=== PATIENT | female | born 1975 | race Caucasian/White ===

== ENCOUNTER 2018-06-26 14:46 | Emergency (ER) | payer BC ==
--- NOTE | 2018-06-26 16:18 | UC ---
Respiratory Complaint HPI - HPI Summary HPI Summary: 42 y/o female presents to the urgent care c/o sinus congestion w/ yellowish nasal discharge, dry cough and sinus pain for the past week. Pt has used the [place] pot w/o any improvement of symptoms. This morning she woke up w/ Rt ear pain and pressure and a of PND. Pt states sinus pain is 4/10. Pt denies fever, SOB, wheezing, chest pain, abdominal pain, N/V/D. - History of Current Complaint Stated Complaint: SINUS, COUGH, CONGESTION Time Seen by Provider: 06/26/18 16:14 Hx Obtained From: Patient Hx Last Menstrual Period: 06/12/2018 ?: No Onset/Duration: Gradual Onset, Lasting Weeks - 1 week, Still Present, Worse Since - today Timing: Constant Severity Initially: Mild Severity Currently: Moderate Pain Intensity: 4 Pain Scale Used: 0-10 Numeric Character: Cough: Nonproductive Aggravating Factors: Allergens Alleviating Factors: OTC Meds Associated Signs And Symptoms: Positive: URI, Nasal Congestion, Sinus Discomfort. Negative: Fever, Chills, Wheezing Related History: Seasonal Allergies - Risk Factors Pulmonary Embolism Risk Factors: Negative Cardiac Risk Factors: Negative Pseudomonas Risk Factors: Negative Tuberculosis Risk Factors: Negative - Allergies/Home Medications Allergies/Adverse Reactions: Allergies Allergy/AdvReac Type Severity Reaction Status Date / Time No Known Allergies Allergy Verified 06/26/18 16:13 PMH/Surg Hx/FS Hx/Imm Hx Previously Healthy: Yes - Pt denies PMHX - Family History Known Family History: Positive: Unknown - Pt is adopted - Social History Occupation: Employed Full-time Lives: With Family Alcohol Use: Occasionally Substance Use Type: None Smoking Status (MU): Heavy Every Day Tobacco Smoker Review of Systems Constitutional: Fatigue Skin: Negative Eyes: Negative ENT: Ear Ache - RT, Nasal Discharge - yellowish, Sinus Congestion, Sinus Pain/ Tenderness Respiratory: Cough - dry Cardiovascular: Negative Gastrointestinal: Negative Genitourinary: Negative Motor: Negative Neurovascular: Negative Musculoskeletal: Negative Neurological: Negative Psychological: Negative Is Patient Immunocompromised?: No All Other Systems Reviewed And Are Negative: Yes Physical Exam - Summary Physical Exam Summary: Vitals: reviewed General: Well developed, well-nourished female patient with NAD. Head and face: Normocephalic and atraumatic, Positive tenderness over the frontal and maxillary sinuses.. Eyes: PERRLA, EOMI x 2. Normal conjunctiva. No eye discharge. ENT: Ears and TM with normal limits. Nose: edematous and erythematous nasal mucosa with with yellowish discharge and erythematous mucosa. Pharynx with erythema, no exudate. +PND yellowish Neck: Supple, no JVD, no carotid bruits and no lymphadenopathy. Lungs: clear, no rales, no rhonchi, no wheezes. CVS: RRR, S1 and S2 present no murmurs or gallops appreciated. Abdomen: soft nontender with positive bowel sounds. Extremities: no edema noted. Neuro: WNL. Skin: warm and dry Triage Information Reviewed: Yes Respiratory Course/Dx - Course Course Of Treatment: 42 y/o female presents to the urgent care c/o sinus congestion w/ yellowish nasal discharge, dry cough and sinus pain for the past week. Pt has used the [place] pot w/o any improvement of symptoms. This morning she woke up w/ Rt ear pain and pressure and a of PND. Pt states sinus pain is 4/ 10. Pt denies fever, SOB, wheezing, chest pain, abdominal pain, N/V/D.Hx obtained. Pt with 2 weeks of symptoms getting worse. Pt Rx Augmentin PO and flonase nasal spray. Tessalon PO for cough. Discharge instructions explained to Pt. Advised to Return to the clinic or PCP if symptoms do not improve.Pt understood and agreed with plan of care. - Differential Dx/Diagnosis Differential Diagnosis/HQI/PQRI: Asthma, Bronchitis, Influenza, Laryngitis, Lower Resp Infection, Sinusitis Provider Diagnoses: 1- Acute bacterial sinusitis. 2- Cough Discharge - Sign-Out/Discharge Documenting (check all that apply): Patient Departure - D/c home All imaging exams completed and their final reports reviewed: No Studies - Discharge Plan Condition: Stable Disposition: HOME Prescriptions: Amoxicillin/Clavulanate TAB* [Augmentin TAB 875*] 875 mg PO BID #20 tab Benzonatate CAP* [Tessalon 100 MG CAP*] 100 mg PO TID #21 cap Fluticasone NASAL SPRAY 50MCG* [Flonase NASAL SPRAY 50MCG*] 2 spray BOTH NARES DAILY #1 btl Patient Education Materials: Sinusitis (ED) Forms: *Work Release Referrals: Yunier Varela MD [Primary Care Provider] - 3 Days Additional Instructions: 1- Please increase fluid intake and rest. take full course of antibiotic to avoid resistance 2-Use Flonase as directed to help drain fluid. Also buy saline drops to clear sinuses 3-Take Tessalon tabs PO to alleviates cough 4-Return to the clinic or PCP 3 days if symptoms do not improve for further management and treatment - Billing Disposition and Condition Condition: STABLE Disposition: Home - Attestation Statements Provider Attestation: Per institutional requirements, I have reviewed the chart, however, I was not consulted specifically or made aware of this patient by the midlevel provider. I did not personally evaluate, interact with , or disposition this patient.
[2018-06-26 16:19] VITALS: BP 115/86
== END 2018-06-26 17:04 | disposition home or self-care (01) ==
LOC: UCEAST 14:46
DX: J01.90 Acute sinusitis, unspecified (principal); R05 Cough; F17.200 Nicotine dependence, unspecified, uncomplicated
CPT/HCPCS: 99212; G0463

== ENCOUNTER 2018-10-15 13:35 | Emergency (ER) | payer BC ==
[2018-10-15] MEDS ORDERED: fentaNYL* 50 MCG/ML 2 ML VIAL (100 MCG VIAL) IV ONE (13:48)
[2018-10-15] MEDS ORDERED: NS 0.9% 1000 ML* 1,000 ML IV ONE (13:48)
[2018-10-15] MEDS ORDERED: fentaNYL* 50 MCG/ML 2 ML VIAL (100 MCG VIAL) IV PRN (13:48)
--- NOTE | 2018-10-15 14:01 | ED ---
Headache - HPI Summary HPI Summary: A 42 y/o female presents to the ED c/o headache since noon. Currently, the patient is still experiencing a headache reaching 7/10 in severity. As per triage, "Pt c/o mid sternal stabbing pain, headache, neck pain, shakiness, and pt states "i just don't feel well." Pt states head and neck pain is way worse then mid sternal pain.Pt says everything started approx 1hr ago". According to the patient, she initially started out with a stabbing chest pain earlier, however, that subsided after getting out of the shower. She stated after getting out of the shower her headache started abruptly/suddenly which is now "killing her". Patient denies any neck pain. Patient stated that she is really tired and appears to be borderline tearful. She took Excedrin earlier. No other medical problems. Home Medications Medication Instructions Recorded Confirmed Type Sertraline* [Zoloft*] 50 mg PO DAILY 10/15/18 10/15/18 History - History Of Current Complaint Chief Complaint: EDHeadache Stated Complaint: ABD PAIN/HEADACHE Time Seen by Provider: 10/15/18 13:44 Hx Obtained From: Patient Hx Last Menstrual Period: 06/12/2018 Onset/Duration: Sudden Onset, Started hours ago, Still Present Initially Headache Was: Moderate - 7/10 Currently Pain Is: Moderate - 7/10 Timing: Constant Character: Unable To Describe Location of Headache: Diffuse Radiates to: NO Aggravating Factor: Nothing Allevating Factors: Nothing Associated Signs And Symptoms: Negative - Allergies/Home Medications Allergies/Adverse Reactions: Allergies Allergy/AdvReac Type Severity Reaction Status Date / Time No Known Allergies Allergy Verified 10/15/18 13:41 Home Medications: Home Medications Sertraline* [Zoloft*] 50 mg PO DAILY 10/15/18 [History Confirmed 10/15/18] PMH/Surg Hx/FS Hx/Imm Hx Endocrine/Hematology History: Denies: Hx Diabetes Cardiovascular History: Denies: Hx Hypertension - Cancer History Hx Chemotherapy: No Hx Radiation Therapy: No - Surgical History Surgery Procedure, Year, and Place: vascular surgery to Left leg 2017. sinus surgery 2012 Infectious Disease History: No Infectious Disease History: Denies: Traveled Outside the [place] in Last 30 Days - Family History Known Family History: Positive: Unknown - Pt is adopted - Social History Alcohol Use: Occasionally Hx Substance Use: No Substance Use Type: Reports: None Hx Tobacco Use: No Smoking Status (MU): Heavy Every Day Tobacco Smoker Review of Systems Negative: Fever Positive: Other - NEGATIVE: NECK PAIN Positive: Headache All Other Systems Reviewed And Are Negative: Yes Physical Exam - Summary Physical Exam Summary: Appearance: Well-appearing, Well-nourished, lying in bed comfortably Skin: Warm, dry, no obvious rash Eyes: sclera anicteric, no conjunctival pallor ENT: mucous membranes moist, pharynx appears normal Neck: Supple, nontender Respiratory: Clear to auscultation, no signs of respiratory distress Cardiovascular: Normal S1, S2. No murmurs. Normal distal pulses in tibial and radial bilaterally. Abdomen: Soft, nontender, normal active bowel sounds present Musculoskeletal: Normal, Strength/ROM Intact Neurological: A&Ox3, awake and alert, mentation is normal, speech is fluent and appropriate Psychiatric: affect is normal, does not appear anxious or depressed GCS: 15 Triage Information Reviewed: Yes Vital Signs On Initial Exam: Initial Vitals Temp Pulse Resp BP Pulse Ox 98.2 F 87 18 151/84 100 10/15/18 13:36 10/15/18 13:36 10/15/18 13:36 10/15/18 13:36 10/15/18 13:36 Vital Signs Reviewed: Yes - [place] Coma Scale Best Eye Response: 4 - Spontaneous Best Motor Response: 6 - Obeys Commands Best Verbal Response: 5 - Oriented Coma Scale Total: 15 Diagnostics - Vital Signs Vital Signs Temp Pulse Resp BP Pulse Ox 10/15/18 13:36 98.2 F 87 18 151/84 100 - Laboratory Result Diagrams: 10/15/18 13:59 10/15/18 13:59 Lab Statement: Any lab studies that have been ordered have been reviewed, and results considered in the medical decision making process. - Radiology CXR Radiology Interpretation Completed By: Radiologist Summary of Radiographic Findings: NO EVIDENCE FOR ACTIVE CARDIOPULMONARY DISEASE. ED PHYSICIAN REVIEWED THIS RADIOLOGY REPORT. - CT BRAIN CT CT Interpretation Completed By: Radiologist Summary of CT Findings: NO ACUTE INTRACRANIAL PATHOLOGY. ED PHYSICIAN REVIEWED THIS RADIOLOGY REPORT. - EKG 1400 Cardiac Rate: NL - 68 BPM EKG Rhythm: Sinus Rhythm - 68 BPM Summary of EKG Findings: NSR at 68 BPM, P waves, QRS complex, and T waves are within normal limits, T waves and intervals are normal, no ischemic changes. This is a normal EKG. Headache Course/Dx - Course Course Of Treatment: A 42 y/o female presents to the ED c/o headache since noon. Currently, the patient is still experiencing a headache reaching 7/10 in severity. According to the patient, she initially started out with a stabbing chest pain earlier, however, that subsided after getting out of the shower. She stated after getting out of the shower her headache started abruptly/suddenly which is now "killing her". Patient denies any neck pain. Patient stated that she is really tired and appears to be borderline tearful. Physical examination was unremarkable. A CXR revealed no evidence for active cardiopulmonary disease. A Brain CT revealed no acute intracranial pathology. An EKG revealed NSR at 68 BPM, P waves, QRS complex, and T waves are within normal limits, T waves and intervals are normal, no ischemic changes. This is a normal EKG. Hematology, Chemistry, and serology screens were done. No significant laboratory abnormalities were found. In the ED course, the patient received Fentanyl, Xylocaine, Morphine, and IV fluids. Patient care was discussed with Dr. Mora who recommends patient be transferred to [place] due to suspicion for subarachnoid hemorrhage. Patient will be transferred to [facility] in [place], [place] with a diagnosis of subarachnoid hemorrhage. Dr. Gutierres is accepting physician to [facility] ED. Patient is agreeable with this plan. - Diagnoses Provider Diagnoses: Subarachnoid hemorrhage - Physician Notifications Discussed Care Of Patient With: Vasreg Mora Time Discussed With Above Provider: 16:45 Instructed by Provider To: Other - RECOMMENDS TRANSFER TO [place] DUE TO SUSPICION FOR SUBARACHNOID HEMORRHAGE. DR. GUTIERRES IS ACCEPTING PHYSICIAN TO ED AT [place]. Discharge - Sign-Out/Discharge Documenting (check all that apply): Patient Departure - TRANSFER, Sign-Out Patient - NENITA Signing out patient TO: Misael Gutierres Receiving patient FROM: Taz Sun - Discharge Plan Condition: Stable Disposition: TRANS HIGHER LVL OF CARE FAC Referrals: Yunier Varela MD [Primary Care Provider] - - Billing Disposition and Condition Condition: STABLE Disposition: Trans Higher Lvl of Care Fac - Attestation Statements Document Initiated by Scribe: Yes Documenting Scribe: Leon Barron Provider For Whom Scribe is Documenting (Include Credential): Taz Sun MD Scribe Attestation: I, Leon Barron, scribed for Taz Sun MD on 10/15/18 at 1801. Scribe Documentation Reviewed: Yes Provider Attestation: The documentation as recorded by the Leon mari accurately reflects the service I personally performed and the decisions made by me, Taz Sun MD Status of Scribe Document: Viewed
[2018-10-15 14:09] LABS: ABS Basophils 0.1 10^3/ul (0-0.2); ABS Eosinophils 0.2 10^3/ul (0-0.6); ABS Lymphocytes 2.1 10^3/ul (1.0-4.8); ABS Monocytes 0.4 10^3/ul (0-0.8); ABS Neutrophils 4.5 10^3/ul (1.5-7.7); ABS Nucleated RBC 0 10^3/ul; Eosinophil % 2.4 %; Hematocrit 39 % (35-47); Hemoglobin 13.1 g/dl (12.0-16.0); Lymphocyte % 28.8 %; Mean Corpuscular HGB Conc 34 g/dl (31-36); Mean Corpuscular Hemoglobin 30 pg (27-31); Mean Corpuscular Volume 87 fL (80-97); Mean Platelet Volume 7.9 fL (7.4-10.4); Nucleated Red Blood Cells % 0; Platelet Count 314 10^3/ul (150-450); Red Blood Count 4.46 10^6/ul (4.00-5.40); Red Cell Distribution Width 13 % (10.5-15); White Blood Count 7.2 10^3/ul (3.5-10.8)
[2018-10-15 14:30] LABS: Albumin 4.2 g/dL (3.2-5.2); Albumin/Globulin Ratio 1.4 (1-3); BUN/Creatinine Ratio 12.7 (8-20); Calcium 9.6 mg/dL (8.6-10.3); EGFR Non-African American 80.2 (>60); Globulin 3.1 g/dL (2-4); Potassium 3.7 mmol/L (3.5-5.0); Total Bilirubin 0.5 mg/dL (0.2-1.0); Total Protein 7.3 g/dL (6.4-8.9)
[2018-10-15] MEDS ORDERED: Lidocaine 2% EPI 1:200000 MPF*10-20 ML VIAL ONE (14:41)
[2018-10-15] MEDS ORDERED: Lidocaine 2% EPI 1:200000 MPF*10-20 ML VIAL INJ ONE (14:54)
[2018-10-15 15:08] LABS: Body Fluid Source Cerebral Spinal
[2018-10-15] MEDS ORDERED: Morphine ORAL.SOLN 10 mg* 2 MG/ML UDC 5 ml PO ONE (16:49)
[2018-10-15 16:57] VITALS: BP 123/79
[2018-10-15] MEDS ORDERED: Ondansetron INJ* 2 MG/ML VIAL IV ONE (17:59)
[2018-10-15] MEDS ORDERED: Ondansetron INJ* 2 MG/ML VIAL ONE (17:59)
== END 2018-10-15 17:31 | disposition short-term general hospital (02) ==
LOC: ED 13:35
DX: I60.9 Nontraumatic subarachnoid hemorrhage, unspecified (principal); Z72.0 Tobacco use
CPT/HCPCS: 36415; 70450; 71046; 80053; 84484; 85025; 89051; 93005; 96361; 96374; 96375; 99284; J2405; J3010

== ENCOUNTER 2019-07-07 11:02 | Emergency (ER) | payer BC ==
--- NOTE | 2019-07-07 11:24 | UC ---
General HPI - HPI Summary HPI Summary: 2 days c/o cough, uri sx, elevated temp 100.9F. Also + urinary freq / urg, not sure if related to cough, or primary. No rash. No sob perse, no cp. No GI sx. Works in health field. - History of Current Complaint Stated Complaint: FEVER, COUGH, AND DIARRHEA Time Seen by Provider: 07/07/19 11:22 Hx Obtained From: Patient Hx Last Menstrual Period: 06/12/2018 - Allergy/Home Medications Allergies/Adverse Reactions: Allergies Allergy/AdvReac Type Severity Reaction Status Date / Time No Known Allergies Allergy Verified 07/07/19 11:19 Home Medications: Home Medications Doxylamine/Phenylep/Dm/Aspirin [[place] Day-Night Tab Eff] 1 each PO ONCE 07/07/19 [History Confirmed 07/07/19] PMH/Surg Hx/FS Hx/Imm Hx Previously Healthy: Yes - Surgical History Surgical History: Yes Surgery Procedure, Year, and Place: varicose vein removal Left leg 2017. sinus surgery 2012. TUBAL LIGATION - Family History Known Family History: Positive: Unknown - Pt is adopted - Social History Alcohol Use: Occasionally Substance Use Type: None Smoking Status (MU): Heavy Every Day Tobacco Smoker Review of Systems All Other Systems Reviewed And Are Negative: Yes Constitutional: Positive: Other - see hpi Skin: Positive: Negative Eyes: Positive: Negative ENT: Positive: Other - see hpi Respiratory: Positive: Cough Cardiovascular: Positive: Negative Gastrointestinal: Positive: Negative Genitourinary: Positive: Other - see hpi Motor: Positive: Negative Neurovascular: Positive: Negative Musculoskeletal: Positive: Negative Neurological: Positive: Negative Psychological: Positive: Negative Is Patient Immunocompromised?: No Physical Exam Triage Information Reviewed: Yes Appearance: Well-Appearing, Well-Nourished Vital Signs Reviewed: Yes Eye Exam: Normal ENT: Positive: Pharyngeal erythema - mild post pharynx redness, no sores / exudates. Uvula midline., Nasal congestion, TM dull - L TM dull, rushing rtx'd Neck exam: Normal Neck: Positive: Supple, Nontender, No Lymphadenopathy Respiratory Exam: Other - + deep rhonchorus cough Respiratory: Positive: Chest non-tender, Lungs clear, Normal breath sounds, No respiratory distress, No accessory muscle use Cardiovascular Exam: Normal Cardiovascular: Positive: RRR, No Murmur, Pulses Normal, Brisk Capillary Refill Abdominal Exam: Normal Abdomen Description: Positive: Nontender Musculoskeletal Exam: Normal - gait steady Neurological Exam: Normal - grossly nonfocal Psychological Exam: Normal - conversing easily and appropriately Skin Exam: Normal - no visible or reported rash, nondiaphoretic Course/Dx - Course Course Of Treatment: 12:00 - waiting for influenza result, 1st was invalid. reviewed urine dip. nad. however, given sx, cx sent d/t inc suspicion Reviewed coa / tx plan with pt. Questions as posed answered to the best of my ability. - Diagnoses Provider Diagnosis: URI (upper respiratory infection), Serous otitis media, Dysuria Discharge ED - Sign-Out/Discharge Documenting (check all that apply): Patient Departure All imaging exams completed and their final reports reviewed: No Studies - Discharge Plan Condition: Stable Disposition: HOME Prescriptions: Azithromycin TAB* [Zithromax TAB (Z-TOMASA) 250 mg #6 tabs] 2 tab PO .TODAY, THEN 1 DAILY #1 tomasa Patient Education Materials: Acute Bronchitis (ED), Dysuria (ED) Forms: *Work Release Referrals: Alessandro More, RACK PUSHER [Primary Care Provider] - Additional Instructions: Urine culture in the lab. Start antibiotic if symptoms no better or worse or yellow /green nasal drainage or sputum. Seek medical attention for worse or new problems. Hydrate. - Billing Disposition and Condition Condition: STABLE Disposition: Home
[2019-07-07 11:25] VITALS: BP 126/86
[2019-07-07 12:15] LABS: Influenza A Molecular NEGATIVE (Negative); Influenza B Molecular NEGATIVE (Negative)
== END 2019-07-07 12:35 | disposition home or self-care (01) ==
LOC: UCEAST 11:02
DX: J06.9 Acute upper respiratory infection, unspecified (principal); H65.92 Unspecified nonsuppurative otitis media, left ear; R30.0 Dysuria; F17.290 Nicotine dependence, other tobacco product, uncomplicated; Z79.82 Long term (current) use of aspirin
CPT/HCPCS: 81003; 87086; 99212; G0463